=== PATIENT | female | born 1955 | race Caucasian/White ===

== ENCOUNTER 2020-08-18 22:22 | Inpatient (IN) | payer MEDICARE, MEDICAID ==
[~2020-08-18] VITALS: Ht 157.5 cm; Wt 107.8 kg
--- NOTE | 2020-08-18 22:40 | NUR ---
Patient BIB air from [facility]. Patient was seen by their ER c/o intermittent vomiting x1 month but consistent x2 days. Patient's K+ is elevated at their facility. Patient has a hx of a CVA with left side deficits. She also was COVID+ on 07/22 but has since had two negative tests. Patient is in NAD. Respirations even and unlabored.
[2020-08-18 23:11] LABS: BASOPHILS # (AUTO) 0.03 x10^3/uL (0-0.1); BASOPHILS % (AUTO) 0 % (0-1); EOSINOPHILS # (AUTO) 0.38 x10^3/uL (0-0.4); EOSINOPHILS % (AUTO) 5 % (1-7); LYMPHOCYTES # (AUTO) 1.22 x10^3/uL (1-3.4); LYMPHOCYTES % (AUTO) 16 % (22-44); MD NO; MEAN CORPUSCULAR HEMOGLOBIN 30.1 pg (27.0-34.8); MEAN CORPUSCULAR HGB CONC 32.6 g/dL (32.4-35.8); MONOCYTES # (AUTO) 0.61 x10^3/uL (0.2-0.8); MONOCYTES % (AUTO) 8 % (2-9); NEUTROPHILS # (AUTO) 5.22 x10^3/uL (1.8-6.8); NEUTROPHILS % (AUTO) 70 % (42-75); PLATELET COUNT 252 x10^3/uL (130-400); RED BLOOD COUNT 3.64 x10^6/uL (3.82-5.3); RED CELL DISTRIBUTION WIDTH 15.5 % (9.6-15.2)
[2020-08-18 23:18] LABS: ALANINE AMINOTRANSFERASE 37 U/L (12-78); ALBUMIN 2.8 g/dL (3.4-5.0); ANION GAP 13 mmol/L (5-15); CALCIUM 9.6 mg/dL (8.5-10.1); CHLORIDE 113 mmol/L (98-107); CREATININE 6.88 mg/dL (0.55-1.02)
[2020-08-18 23:23] LABS: ALKALINE PHOSPHATASE 93 U/L (45-117); BILIRUBIN,TOTAL 0.4 mg/dL (0.2-1.0); TOTAL PROTEIN 6.8 g/dL (6.4-8.2)
[2020-08-18] MEDS ORDERED: ALBUTEROL 0.5%, 20ML NPPB ONE (23:30)
[2020-08-18] MEDS ORDERED: FUROSEMIDE 40 MG/4 ML IVPush ONE (23:30)
[2020-08-18] MEDS ORDERED: INSULIN REGULAR 100 UNITS/ML, 3ML VIAL IVPush ONE (23:30)
[2020-08-18] MEDS ORDERED: DEXTROSE 50%, 50ML SYRINGE IVPush ONE (23:30)
[2020-08-18] MEDS ORDERED: SODIUM BICARB 8.4%, 50ML SYRINGE IVPush ONE (23:30)
[2020-08-18] MEDS ORDERED: FUROSEMIDE 40 MG/4 ML ONE (23:37)
[2020-08-18] MEDS ORDERED: DEXTROSE 50%, 50ML SYRINGE ONE (23:38)
[2020-08-18] MEDS ORDERED: SODIUM BICARB 8.4%, 50ML SYRINGE ONE (23:38)
[2020-08-19] MEDS ORDERED: DOCU100C33 PO (00:14)
[2020-08-19] MEDS ORDERED: BISA10SU4 PR (00:14)
[2020-08-19] MEDS ORDERED: METF1000 PO (00:14)
[2020-08-19] MEDS ORDERED: BUDE10.2 INH (00:14)
[2020-08-19] MEDS ORDERED: IPRA4AER INH (00:14)
[2020-08-19] MEDS ORDERED: ATOR10TA9 PO (00:14)
[2020-08-19] MEDS ORDERED: LEVO50TA5 PO (00:14)
[2020-08-19] MEDS ORDERED: OLOP2.5D5 EACHEYE (00:14)
[2020-08-19] MEDS ORDERED: POLY17PO5 PO (00:14)
[2020-08-19] MEDS ORDERED: BACL20TA PO (00:14)
[2020-08-19] MEDS ORDERED: FAMO20TA7 PO (00:14)
[2020-08-19] MEDS ORDERED: PROM25TA10 PO (00:14)
[2020-08-19] MEDS ORDERED: LEVE500T53 PO (00:14)
[2020-08-19] MEDS ORDERED: MELA3TAB62 PO (00:14)
[2020-08-19] MEDS ORDERED: LOPE-114 PO (00:14)
[2020-08-19] MEDS ORDERED: HYDR-3237 PO (00:14)
[2020-08-19] MEDS ORDERED: ASPI-650 PO (00:14)
[2020-08-19] MEDS ORDERED: LISI-170 PO (00:14)
[2020-08-19] MEDS ORDERED: SODIUM POLY SULFONATE UDC 15 GM/60 ML PO ONE (00:30)
--- NOTE | 2020-08-19 00:59 | NUR ---
Report given to VERONIQUE Jordan. Patient to be transferred to room 525.
[2020-08-19] MEDS ORDERED: LIDODERM 5% PATCH TD PRN (01:00)
[2020-08-19] MEDS: LEVOTHYROXINE 50 MCG TABLET PO SCH ×2 (01:00→21:54)
[2020-08-19] MEDS ORDERED: DEXTROSE 4 GM TAB.CHEW PO PRN (04:30)
[2020-08-19] MEDS ORDERED: DEXTROSE 50%, 50ML SYRINGE IVPush PRN (04:30)
[2020-08-19] MEDS ORDERED: GLUCAGON 1 MG IM PRN (04:30)
[2020-08-19 04:55] LABS: BASOPHILS # (AUTO) 0.06 x10^3/uL (0-0.1); BASOPHILS % (AUTO) 1 % (0-1); EOSINOPHILS # (AUTO) 0.46 x10^3/uL (0-0.4); EOSINOPHILS % (AUTO) 7 % (1-7); LYMPHOCYTES # (AUTO) 1.27 x10^3/uL (1-3.4); LYMPHOCYTES % (AUTO) 20 % (22-44); MD NO; MEAN CORPUSCULAR HEMOGLOBIN 29.7 pg (27.0-34.8); MEAN CORPUSCULAR HGB CONC 31.9 g/dL (32.4-35.8); MEAN PLATELET VOLUME 9.3 fL (7.4-10.4); MONOCYTES # (AUTO) 0.56 x10^3/uL (0.2-0.8); MONOCYTES % (AUTO) 9 % (2-9); NEUTROPHILS # (AUTO) 4.06 x10^3/uL (1.8-6.8); NEUTROPHILS % (AUTO) 63 % (42-75); PLATELET COUNT 216 x10^3/uL (130-400); RED BLOOD COUNT 3.26 x10^6/uL (3.82-5.3); RED CELL DISTRIBUTION WIDTH 15.4 % (9.6-15.2)
[2020-08-19 04:58] LABS: ANION GAP 11 mmol/L (5-15); CALCIUM 9.2 mg/dL (8.5-10.1); CHLORIDE 115 mmol/L (98-107); CREATININE 7.08 mg/dL (0.55-1.02)
[2020-08-19 06:38] VITALS: BP 116/67
[2020-08-19] MEDS ORDERED: SODIUM POLYSTYRENE SULFONATE ORAL SUSP PO ONE (07:00)
[2020-08-19] MEDS ORDERED: DEXTROSE 50%, 50ML SYRINGE IVPush ONE ×2 (07:00→17:00)
[2020-08-19] MEDS ORDERED: INSULIN REGULAR 100 UNITS/ML, 3ML VIAL IVPush ONE ×2 (07:00→17:00)
[2020-08-19] MEDS ORDERED: SODIUM BICARBONATE 1 MEQ/ML, 50ML VIAL IVPush ONE (07:00)
--- NOTE | 2020-08-19 07:56 | NUR ---
Patient would benefit from ongoing skilled [employer] services in [facility]. Addendum: 08/19/20 at 0757 by RAHUL SAINI Amended: Links added.
[2020-08-19] MEDS ORDERED: SODIUM BICARB 8.4%, 50ML SYRINGE IVPush ONE (08:00)
[2020-08-19] MEDS ORDERED: HYDROcodone/APAP 5/325 TABLET PO SCH (09:00)
[2020-08-19] MEDS: SODIUM CHLORIDE FLUSH 10ML SYR IVF SCH ×2 (09:30→21:00)
[2020-08-19] MEDS: LEVETIRACETAM 500 MG TABLET PO SCH ×2 (09:30→21:54)
[2020-08-19] MEDS: BACLOFEN 10 MG TABLET PO SCH ×3 (09:30→21:54)
[2020-08-19] MEDS: SODIUM BICARBONATE 8.4% 150 MEQ in DEXTROSE 5% 1,000 ML IV SCH ×2 (11:33→22:05)
[2020-08-19 11:47] LABS: CHLORIDE,URINE RANDOM 47 mmol/L; POTASSIUM,URINE RANDOM 37 mmol/L; SODIUM,URINE RANDOM 32 mmol/L
[2020-08-19 11:53] LABS: MICROSCOPIC INDICATED
[2020-08-19 12:19] VITALS: BP 124/80
[2020-08-19] MEDS: ONDANSETRON 2MG/ML, 2ML IVPush PRN (14:13)
[2020-08-19 14:50] LABS: ANION GAP 12 mmol/L (5-15); CALCIUM 8.9 mg/dL (8.5-10.1); CHLORIDE 113 mmol/L (98-107); CREATININE 7.56 mg/dL (0.55-1.02)
[2020-08-19] MEDS ORDERED: PHARMACY MAY ADJ FOR RENAL FX MC PRN (15:30)
[2020-08-19] MEDS ORDERED: CEFTRIAXONE PMX 1GM/50ML 50 ML IV SCH (17:00)
[2020-08-19] MEDS: HEPARIN 5,000 UNITS/ML, 1ML SQ SCH (17:50)
[2020-08-19] MEDS: SODIUM ZIRCONIUM CYCLOSILICATE 10 GM PO ONE ×2 (20:00→21:08)
[2020-08-19 20:55] VITALS: BP 121/72
[2020-08-19] MEDS: MELATONIN 3 MG PO SCH (21:00)
[2020-08-19] MEDS: ATORVASTATIN 80 MG TABLET PO SCH (21:54)
[2020-08-20 00:58] VITALS: BP 131/79
[2020-08-20] MEDS: HEPARIN 5,000 UNITS/ML, 1ML SQ SCH ×3 (01:19→20:55)
[2020-08-20 04:55] LABS: ANION GAP 10 mmol/L (5-15); CALCIUM 8.3 mg/dL (8.5-10.1); CHLORIDE 107 mmol/L (98-107); CREATININE 7.98 mg/dL (0.55-1.02); MEAN CORPUSCULAR HEMOGLOBIN 30.3 pg (27.0-34.8); MEAN CORPUSCULAR HGB CONC 32.5 g/dL (32.4-35.8); MEAN PLATELET VOLUME 8.8 fL (7.4-10.4); PLATELET COUNT 213 x10^3/uL (130-400); RED BLOOD COUNT 3.02 x10^6/uL (3.82-5.3); RED CELL DISTRIBUTION WIDTH 15.5 % (9.6-15.2)
[2020-08-20 05:34] LABS: BASOPHILS # (AUTO) 0.04 x10^3/uL (0-0.1); BASOPHILS % (AUTO) 1 % (0-1); EOSINOPHILS # (AUTO) 0.55 x10^3/uL (0-0.4); EOSINOPHILS % (AUTO) 8 % (1-7); LYMPHOCYTES # (AUTO) 1.38 x10^3/uL (1-3.4); LYMPHOCYTES % (AUTO) 20 % (22-44); MD SCAN; MONOCYTES # (AUTO) 0.59 x10^3/uL (0.2-0.8); MONOCYTES % (AUTO) 8 % (2-9); NEUTROPHILS # (AUTO) 4.53 x10^3/uL (1.8-6.8); NEUTROPHILS % (AUTO) 64 % (42-75)
[2020-08-20] MEDS: SODIUM BICARBONATE 8.4% 150 MEQ in DEXTROSE 5% 1,000 ML IV SCH (06:30)
[2020-08-20 07:27] VITALS: BP 131/70
[2020-08-20] MEDS: BACLOFEN 10 MG TABLET PO SCH ×3 (09:00→21:00)
[2020-08-20] MEDS: LEVETIRACETAM 500 MG TABLET PO SCH ×2 (09:00→21:00)
[2020-08-20] MEDS: SODIUM CHLORIDE FLUSH 10ML SYR IVF SCH ×2 (10:35→21:00)
[2020-08-20 12:35] VITALS: BP 136/79
[2020-08-20 19:37] VITALS: BP 130/69
[2020-08-20] MEDS: AMPICILLIN/SULBACTAM 3 GM in SODIUM CHLORIDE 0.9% 100 ML IV SCH (20:55)
[2020-08-20] MEDS: ATORVASTATIN 80 MG TABLET PO SCH (21:00)
[2020-08-20] MEDS: MELATONIN 3 MG PO SCH (21:00)
[2020-08-20 21:05] VITALS: BP 162/92
[2020-08-20] MEDS: LEVOTHYROXINE 50 MCG TABLET PO SCH (21:20)
[2020-08-20] MEDS ORDERED: LEVETIRACETAM 100 MG/ML, 5ML IVPush SCH (21:30)
[2020-08-20] MEDS ORDERED: LEVETIRACETAM 500 MG in SODIUM CHLORIDE 0.9% 100 ML IV SCH (22:00)
[2020-08-21] MEDS: SODIUM BICARBONATE 8.4% 150 MEQ in DEXTROSE 5% 1,000 ML IV SCH ×2 (00:34→10:08)
[2020-08-21 01:36] VITALS: BP 112/72
[2020-08-21 03:49] LABS: BASOPHILS # (AUTO) 0.05 x10^3/uL (0-0.1); BASOPHILS % (AUTO) 1 % (0-1); EOSINOPHILS # (AUTO) 0.36 x10^3/uL (0-0.4); EOSINOPHILS % (AUTO) 6 % (1-7); LYMPHOCYTES # (AUTO) 1.04 x10^3/uL (1-3.4); LYMPHOCYTES % (AUTO) 18 % (22-44); MD NO; MEAN CORPUSCULAR HEMOGLOBIN 29.9 pg (27.0-34.8); MEAN CORPUSCULAR HGB CONC 32.2 g/dL (32.4-35.8); MEAN PLATELET VOLUME 8.7 fL (7.4-10.4); MONOCYTES # (AUTO) 0.48 x10^3/uL (0.2-0.8); MONOCYTES % (AUTO) 8 % (2-9); NEUTROPHILS # (AUTO) 3.72 x10^3/uL (1.8-6.8); NEUTROPHILS % (AUTO) 66 % (42-75); PLATELET COUNT 200 x10^3/uL (130-400); RED BLOOD COUNT 3.11 x10^6/uL (3.82-5.3); RED CELL DISTRIBUTION WIDTH 15.3 % (9.6-15.2)
[2020-08-21] MEDS: HEPARIN 5,000 UNITS/ML, 1ML SQ SCH ×3 (03:56→22:11)
[2020-08-21] MEDS: AMPICILLIN/SULBACTAM 3 GM in SODIUM CHLORIDE 0.9% 100 ML IV SCH ×2 (03:56→14:28)
[2020-08-21 03:57] LABS: ANION GAP 8 mmol/L (5-15); CALCIUM 7.8 mg/dL (8.5-10.1); CHLORIDE 102 mmol/L (98-107); CREATININE 5.75 mg/dL (0.55-1.02)
[2020-08-21] MEDS: ONDANSETRON 2MG/ML, 2ML IVPush PRN ×2 (04:25→19:00)
[2020-08-21 07:44] VITALS: BP 153/82
[2020-08-21] MEDS ORDERED: BISACODYL 10 MG SUPP PR PRN (08:30)
[2020-08-21] MEDS ORDERED: MAGNESIUM HYDROXIDE 8%, 30ML UDC PO PRN (08:30)
[2020-08-21] MEDS ORDERED: LEVETIRACETAM 500 MG TABLET PO SCH (09:00)
[2020-08-21] MEDS: SODIUM CHLORIDE FLUSH 10ML SYR IVF SCH ×2 (09:00→22:12)
[2020-08-21] MEDS: SENNA/DOCUSATE TABLET PO SCH (13:43)
[2020-08-21] MEDS: LEVETIRACETAM 500 MG in SODIUM CHLORIDE 0.9% 100 ML IV SCH (13:43)
[2020-08-21 15:30] VITALS: BP 166/93
[2020-08-21] MEDS: BACLOFEN 10 MG TABLET PO SCH ×2 (16:17→22:11)
[2020-08-21 16:54] LABS: ANA SCREEN POSITIVE (Negative)
[2020-08-21 16:55] LABS: ANTI-NUCLEAR ANTIBODY PATTERN HOMOGENOUS
[2020-08-21 19:06] VITALS: BP 133/70
[2020-08-21] MEDS: MELATONIN 3 MG PO SCH (21:00)
[2020-08-21] MEDS: LEVOTHYROXINE 50 MCG TABLET PO SCH (22:11)
[2020-08-21] MEDS: ATORVASTATIN 80 MG TABLET PO SCH (22:11)
[2020-08-22 00:56] VITALS: BP 132/82
[2020-08-22] MEDS: LEVETIRACETAM 500 MG in SODIUM CHLORIDE 0.9% 100 ML IV SCH ×2 (01:01→11:39)
[2020-08-22] MEDS: HEPARIN 5,000 UNITS/ML, 1ML SQ SCH ×3 (04:46→22:38)
[2020-08-22 05:27] LABS: BASOPHILS # (AUTO) 0.03 x10^3/uL (0-0.1); BASOPHILS % (AUTO) 1 % (0-1); EOSINOPHILS # (AUTO) 0.32 x10^3/uL (0-0.4); EOSINOPHILS % (AUTO) 7 % (1-7); LYMPHOCYTES # (AUTO) 1.23 x10^3/uL (1-3.4); LYMPHOCYTES % (AUTO) 26 % (22-44); MD NO; MEAN CORPUSCULAR HEMOGLOBIN 30.2 pg (27.0-34.8); MEAN CORPUSCULAR HGB CONC 32.5 g/dL (32.4-35.8); MEAN PLATELET VOLUME 8.9 fL (7.4-10.4); MONOCYTES # (AUTO) 0.41 x10^3/uL (0.2-0.8); MONOCYTES % (AUTO) 9 % (2-9); NEUTROPHILS % (AUTO) 59 % (42-75); PLATELET COUNT 188 x10^3/uL (130-400); RED BLOOD COUNT 2.81 x10^6/uL (3.82-5.3); RED CELL DISTRIBUTION WIDTH 16.1 % (9.6-15.2)
[2020-08-22 05:34] LABS: ALANINE AMINOTRANSFERASE 21 U/L (12-78); ALBUMIN 2.2 g/dL (3.4-5.0); ANION GAP 5 mmol/L (5-15); CALCIUM 7.7 mg/dL (8.5-10.1); CHLORIDE 107 mmol/L (98-107)
[2020-08-22 05:37] LABS: ALKALINE PHOSPHATASE 75 U/L (45-117); BILIRUBIN,TOTAL 0.4 mg/dL (0.2-1.0); CREATININE 3.77 mg/dL (0.55-1.02); TOTAL PROTEIN 5.3 g/dL (6.4-8.2)
[2020-08-22 07:18] VITALS: BP 126/65
[2020-08-22] MEDS: SODIUM CHLORIDE FLUSH 10ML SYR IVF SCH ×2 (08:43→22:39)
[2020-08-22] MEDS: ONDANSETRON 2MG/ML, 2ML IVPush PRN (08:48)
[2020-08-22] MEDS: SENNA/DOCUSATE TABLET PO SCH (08:48)
[2020-08-22] MEDS: BACLOFEN 10 MG TABLET PO SCH ×3 (08:48→22:38)
[2020-08-22] MEDS: AMPICILLIN/SULBACTAM 3 GM in SODIUM CHLORIDE 0.9% 100 ML IV SCH (16:27)
[2020-08-22 18:47] VITALS: BP 137/84
[2020-08-22] MEDS: MELATONIN 3 MG PO SCH (21:00)
[2020-08-22] MEDS: ATORVASTATIN 80 MG TABLET PO SCH (22:38)
[2020-08-22] MEDS: LEVOTHYROXINE 50 MCG TABLET PO SCH (22:38)
[2020-08-23 00:54] VITALS: BP 120/70
[2020-08-23] MEDS: LEVETIRACETAM 500 MG in SODIUM CHLORIDE 0.9% 100 ML IV SCH ×2 (01:20→12:37)
[2020-08-23] MEDS: HEPARIN 5,000 UNITS/ML, 1ML SQ SCH ×3 (03:56→20:12)
[2020-08-23 04:31] LABS: ANION GAP 4 mmol/L (5-15); CALCIUM 8.1 mg/dL (8.5-10.1); CHLORIDE 106 mmol/L (98-107)
[2020-08-23 04:33] LABS: CREATININE 2.37 mg/dL (0.55-1.02)
[2020-08-23 07:46] VITALS: BP 110/60
[2020-08-23] MEDS ORDERED: POTASSIUM CHLORIDE 20 MEQ TAB.ER.PRT PO ONE (08:00)
[2020-08-23] MEDS: BACLOFEN 10 MG TABLET PO SCH ×3 (08:25→20:12)
[2020-08-23] MEDS: SENNA/DOCUSATE TABLET PO SCH (09:00)
[2020-08-23] MEDS: SODIUM CHLORIDE FLUSH 10ML SYR IVF SCH ×2 (09:26→20:12)
[2020-08-23 13:14] VITALS: BP 129/71
[2020-08-23] MEDS: AMPICILLIN/SULBACTAM 3 GM in SODIUM CHLORIDE 0.9% 100 ML IV SCH (16:26)
[2020-08-23 19:11] VITALS: BP 137/74
[2020-08-23] MEDS: ATORVASTATIN 80 MG TABLET PO SCH (20:12)
[2020-08-23] MEDS: MELATONIN 3 MG PO SCH (20:12)
[2020-08-23] MEDS: LEVOTHYROXINE 50 MCG TABLET PO SCH (20:12)
[2020-08-24 00:21] VITALS: BP 124/72
[2020-08-24] MEDS: LEVETIRACETAM 500 MG in SODIUM CHLORIDE 0.9% 100 ML IV SCH ×2 (01:37→12:43)
[2020-08-24] MEDS: HEPARIN 5,000 UNITS/ML, 1ML SQ SCH ×3 (05:07→20:57)
[2020-08-24 08:03] VITALS: BP 129/77
[2020-08-24] MEDS: BACLOFEN 10 MG TABLET PO SCH ×3 (08:42→20:58)
[2020-08-24] MEDS: SODIUM CHLORIDE FLUSH 10ML SYR IVF SCH ×2 (08:42→20:57)
[2020-08-24] MEDS: SENNA/DOCUSATE TABLET PO SCH (08:43)
[2020-08-24 10:03] LABS: ALANINE AMINOTRANSFERASE 33 U/L (12-78); ALBUMIN 2.5 g/dL (3.4-5.0); ANION GAP 6 mmol/L (5-15); CALCIUM 8.4 mg/dL (8.5-10.1); CHLORIDE 106 mmol/L (98-107); CREATININE 2.22 mg/dL (0.55-1.02)
[2020-08-24 10:18] LABS: ALKALINE PHOSPHATASE 97 U/L (45-117); BILIRUBIN,TOTAL 0.6 mg/dL (0.2-1.0); TOTAL PROTEIN 6.2 g/dL (6.4-8.2)
[2020-08-24 12:21] VITALS: BP 144/68
[2020-08-24] MEDS: AMPICILLIN/SULBACTAM 3 GM in SODIUM CHLORIDE 0.9% 100 ML IV SCH (16:34)
[2020-08-24 20:14] VITALS: BP 163/74
[2020-08-24] MEDS: MELATONIN 3 MG PO SCH (20:58)
[2020-08-24] MEDS: LEVOTHYROXINE 50 MCG TABLET PO SCH (20:58)
[2020-08-24] MEDS: ATORVASTATIN 80 MG TABLET PO SCH (20:58)
[2020-08-25 00:35] VITALS: BP 125/76
[2020-08-25] MEDS: LEVETIRACETAM 500 MG in SODIUM CHLORIDE 0.9% 100 ML IV SCH ×2 (00:40→13:02)
[2020-08-25] MEDS: HEPARIN 5,000 UNITS/ML, 1ML SQ SCH ×3 (04:38→20:24)
[2020-08-25 05:53] LABS: ALANINE AMINOTRANSFERASE 30 U/L (12-78); ALBUMIN 2.5 g/dL (3.4-5.0); ANION GAP 8 mmol/L (5-15); CALCIUM 7.9 mg/dL (8.5-10.1); CHLORIDE 108 mmol/L (98-107); CREATININE 1.83 mg/dL (0.55-1.02)
[2020-08-25 05:55] LABS: ALKALINE PHOSPHATASE 93 U/L (45-117); BILIRUBIN,TOTAL 0.5 mg/dL (0.2-1.0); TOTAL PROTEIN 5.8 g/dL (6.4-8.2)
[2020-08-25 06:35] VITALS: BP 122/75
[2020-08-25] MEDS: SODIUM CHLORIDE FLUSH 10ML SYR IVF SCH ×2 (08:32→20:24)
[2020-08-25] MEDS: BACLOFEN 10 MG TABLET PO SCH ×3 (08:32→20:23)
[2020-08-25] MEDS: POTASSIUM CHLORIDE 20 MEQ TAB.ER.PRT PO SCH ×2 (08:32→20:23)
[2020-08-25] MEDS: SENNA/DOCUSATE TABLET PO SCH (08:32)
[2020-08-25 09:00] LABS: ANION GAP 8 mmol/L (5-15); CALCIUM 8.2 mg/dL (8.5-10.1); CHLORIDE 108 mmol/L (98-107); CREATININE 1.71 mg/dL (0.55-1.02)
[2020-08-25 13:42] VITALS: BP 138/83
[2020-08-25] MEDS: AMPICILLIN/SULBACTAM 3 GM in SODIUM CHLORIDE 0.9% 100 ML IV SCH (16:52)
[2020-08-25 18:09] VITALS: BP_SYST 162; BP_SYST 173; BP_DIAS 77; BP_DIAS 89
[2020-08-25] MEDS: ATORVASTATIN 80 MG TABLET PO SCH (20:23)
[2020-08-25] MEDS: LEVOTHYROXINE 50 MCG TABLET PO SCH (20:23)
[2020-08-25] MEDS: MELATONIN 3 MG PO SCH (20:24)
[2020-08-25 23:00] VITALS: BP 147/84
[2020-08-26] MEDS: LEVETIRACETAM 500 MG in SODIUM CHLORIDE 0.9% 100 ML IV SCH (00:52)
[2020-08-26 02:09] VITALS: BP 138/78
[2020-08-26] MEDS: AMPICILLIN/SULBACTAM 3 GM in SODIUM CHLORIDE 0.9% 100 ML IV SCH ×2 (03:30→15:13)
[2020-08-26] MEDS: HEPARIN 5,000 UNITS/ML, 1ML SQ SCH ×2 (03:30→13:16)
[2020-08-26 05:58] LABS: ALBUMIN 2.4 g/dL (3.4-5.0); ANION GAP 9 mmol/L (5-15); CALCIUM 8.2 mg/dL (8.5-10.1); CHLORIDE 111 mmol/L (98-107)
[2020-08-26 05:59] LABS: CREATININE 1.52 mg/dL (0.55-1.02)
[2020-08-26 06:48] VITALS: BP 134/67
[2020-08-26] MEDS: SENNA/DOCUSATE TABLET PO SCH (10:17)
[2020-08-26] MEDS: POTASSIUM CHLORIDE 20 MEQ TAB.ER.PRT PO SCH (10:17)
[2020-08-26] MEDS: BACLOFEN 10 MG TABLET PO SCH (10:17)
[2020-08-26] MEDS: SODIUM CHLORIDE FLUSH 10ML SYR IVF SCH (10:19)
[2020-08-26] MEDS ORDERED: MAGNESIUM SULFATE PMX 2GM/50ML 50 ML IV ONE (11:00)
[2020-08-26] MEDS ORDERED: LEVETIRACETAM 500 MG TABLET PO SCH (13:00)
[2020-08-26 14:00] VITALS: BP 144/68
[2020-08-26] MEDS ORDERED: FLU VACC QS2020-21(6MOS UP)/PF 60MCG/0.5 ML SYR IM-VACC ONE (15:00)
== END 2020-08-26 16:07 | DRG 682 ==
LOC: ED 08-19 00:03 → EDIP 08-19 00:51 → 5SO 08-19 02:07
PROVIDERS: ADMIT Internal Medicine; ATTEND Family Medicine
PROC: 0T9B70Z Drainage of Bladder with Drainage Device, Via Natural or Artificial Opening (ICD-10-PCS; principal; 2020-08-19)
DX: N17.0 Acute kidney failure with tubular necrosis (principal); G93.41 Metabolic encephalopathy; E43 Unspecified severe protein-calorie malnutrition; E87.2 Acidosis; I69.354 Hemiplegia and hemiparesis following cerebral infarction affecting left non-dominant side; N39.0 Urinary tract infection, site not specified; Z68.41 Body mass index [BMI] 40.0-44.9, adult; E66.01 Morbid (severe) obesity due to excess calories; E87.5 Hyperkalemia; B95.2 Enterococcus as the cause of diseases classified elsewhere; D64.9 Anemia, unspecified; E03.9 Hypothyroidism, unspecified; E11.22 Type 2 diabetes mellitus with diabetic chronic kidney disease; E11.649 Type 2 diabetes mellitus with hypoglycemia without coma; E83.42 Hypomagnesemia; E87.6 Hypokalemia; G40.909 Epilepsy, unspecified, not intractable, without status epilepticus; I12.9 Hypertensive chronic kidney disease with stage 1 through stage 4 chronic kidney disease, or unspecified chronic kidney disease; N18.9 Chronic kidney disease, unspecified; Z20.828 Contact with and (suspected) exposure to other viral communicable diseases
CPT/HCPCS: 36415; 36556; 70450; 74230; 76705; 76770; 80048; 80053; 80069; 80074; 81001; 82140; 82436; 82962; 83036; 83520; 83735; 83970; 84100; 84133; 84145; 84300; 84443; 85025; 86038; 86039; 86160; 86162; 86225; 86256; 86706; 87077; 87086; 87186; 90686; 90935; 93005; 95819; G0378; J0295; J0696; J1644; J1815; J1940; J1953; J2405; J7070; C1751; C1769; J1642; J3475